=== PATIENT | female | born 1980 | race Caucasian/White ===

== ENCOUNTER 2021-07-09 12:18 | Outpatient (REF) | payer BC, SELFPAY ==
[2021-07-09 11:02] LABS: ALT 30 U/L (14-59); AST 17 U/L (15-37); Albumin 3.7 g/dL (3.4-5.0); Alkaline Phosphatase 90 U/L (46-116); Anion Gap 7.9 mmol/L (3-11); BUN 21 mg/dL (7-18); Bilirubin, Total 0.3 mg/dL (0.2-1.0); CO2 29.1 mmol/L (21.0-32.0); CREATININE 1.3 mg/dL (0.55-1.02); Calcium 9.9 mg/dL (8.5-10.1); Chloride 98 mmol/L (98-107); Estimated GFR 45.84 (mL/min/1.73m2); Glucose 112 mg/dL (74-106); Magnesium 1.6 mg/dL (1.8-2.4); Potassium 3.4 mmol/L (3.5-5.1); Sodium 135 mmol/L (136-145)
[2021-07-09 11:11] LABS: Bilirubin Negative (Negative); Blood Moderate (Negative); Clarity Sl Cloudy (Clear); Glucose 100 mg/dL (Negative); Ketones Negative (Negative); Leukocyte Esterase Small (Negative); Nitrite Negative (Negative); Specific Gravity 1.025 (1.005-1.025); Urobilinogen 0.2 EU/dL (Up TO 0.2); pH 5.5 (5-8)
[2021-07-09 11:18] LABS: Bacteria Few HPF (Negative); C & S Indicated? No/Sq. Contamination; Casts 3-5 Hyaline LPF (Negative); Crystals Negative HPF (Negative); Epithelial Cells Moderate HPF (Negative); Mucus Negative (Negative); WBC 20-50 HPF (0-5)
== END 2021-07-09 12:19 | disposition home or self-care (01) ==
LOC: LBN 12:18
PROVIDERS: Internal Medicine; PCP Physician Assistant Medical; Visit Provider Nurse Practitioner Adult Health
DX: R35.0 Frequency of micturition (principal); C53.9 Malignant neoplasm of cervix uteri, unspecified
CPT/HCPCS: 80053; 81003; 81015; 83735

== ENCOUNTER 2021-07-16 01:08 | Outpatient (RCR) | payer BC, SELFPAY ==
[2021-07-02 11:14] LABS: Abs Immature Grans 0.01 10^3/uL (0.0-0.06); Absolute Basophil Count 0.01 10^3/uL (0.0-0.2); Absolute Eosinophil Count 0.08 10^3/uL (0.0-0.7); Absolute Lymphocyte Count 1.68 10^3/uL (1.2-3.4); Absolute Neutrophil Count 3.54 10^3/uL (1.2-6.7); Basophils % 0.2; Eosinophils % 1.4; HCT 32.2 % (36.0-46.0); HGB 9.4 g/dL (11.2-15.7); Immature Grans % 0.2; Lymphocytes % 29.9; MCH 19.5 pg (27.0-33.0); MCHC 29.2 % (32.0-36.0); MCV 66.8 fL (80-95); MPV 9.8 fL (8.0-11.0); Monocytes % 5.3; Nucleated RBC 0 %; Platelet Count 409 10^3/uL (130-400); RBC 4.82 10^6/uL (3.93-5.22); RDW 17.3 % (11.7-14.6); RDW-SD 40.9 fL; WBC 5.62 10^3/uL (4.4-10.8)
[2021-07-02 11:27] LABS: ALT 21 U/L (14-59); AST 11 U/L (15-37); Albumin 3.6 g/dL (3.4-5.0); Alkaline Phosphatase 97 U/L (46-116); BUN 10 mg/dL (7-18); Bilirubin, Total 0.2 mg/dL (0.2-1.0); CREATININE 0.7 mg/dL (0.55-1.02); Chloride 104 mmol/L (98-107); Glucose 92 mg/dL (74-106); Sodium 138 mmol/L (136-145)
[2021-07-02 11:29] LABS: Diff Comment Diff Reviewed; Hypochromasia 2+; Microcytosis 2+
[2021-07-03 13:25] LABS: Ferritin 9 ng/mL (8-252)
[2021-07-09 08:38] LABS: Abs Immature Grans 0.03 10^3/uL (0.0-0.06); Absolute Basophil Count 0.01 10^3/uL (0.0-0.2); Absolute Eosinophil Count 0.07 10^3/uL (0.0-0.7); Absolute Lymphocyte Count 0.46 10^3/uL (1.2-3.4); Absolute Monocyte Count 0.43 10^3/uL (0.1-0.8); Basophils % 0.2; Eosinophils % 1.3; HCT 31.3 % (36.0-46.0); HGB 9.3 g/dL (11.2-15.7); Immature Grans % 0.6; Lymphocytes % 8.8; MCH 19.5 pg (27.0-33.0); MCHC 29.7 % (32.0-36.0); MCV 65.5 fL (80-95); MPV 10.1 fL (8.0-11.0); Monocytes % 8.3; Neutrophils % 80.8; Nucleated RBC 0 %; Platelet Count 404 10^3/uL (130-400); RBC 4.78 10^6/uL (3.93-5.22); RDW 16.9 % (11.7-14.6); RDW-SD 38.3 fL
[2021-07-09] MEDS: Normal Saline Flush 10 ML SYR IVP (08:40)
[2021-07-09 08:53] LABS: Diff Comment Diff Reviewed; Hypochromasia 2+; Microcytosis 3+
== END 2021-07-21 23:59 | disposition home or self-care (01) ==
LOC: INF 01:08
PROVIDERS: PCP Physician Assistant Medical; Visit Provider Internal Medicine
DX: C53.9 Malignant neoplasm of cervix uteri, unspecified (principal)
CPT/HCPCS: 36415; 80053; 82728; 83735; 85025

== ENCOUNTER 2021-07-29 18:18 | Outpatient (REF) | payer BC, SELFPAY ==
[2021-07-29 21:36] LABS: Bilirubin Negative (Negative); Blood Large (Negative); Clarity Cloudy (Clear); Glucose 100 mg/dL (Negative); Ketones Negative (Negative); Leukocyte Esterase Trace (Negative); Nitrite Negative (Negative); Specific Gravity >= 1.030 (1.005-1.025); Urobilinogen 0.2 EU/dL (Up TO 0.2)
[2021-07-29 21:45] LABS: Bacteria Many HPF (Negative); C & S Indicated? Yes; Casts Negative LPF (Negative); Crystals Moderate Amorphous HPF (Negative); Epithelial Cells Few HPF (Negative); Mucus Negative (Negative)
== END 2021-07-29 18:19 | disposition home or self-care (01) ==
LOC: LBN 18:18
PROVIDERS: PCP Physician Assistant Medical; Visit Provider Nurse Practitioner Adult Health
DX: R35.0 Frequency of micturition (principal)
CPT/HCPCS: 81003; 81015; 87086

== ENCOUNTER 2021-08-20 02:04 | Outpatient (RCR) | payer BC, SELFPAY ==
[2021-07-23 10:25] LABS: Abs Immature Grans 0.02 10^3/uL (0.0-0.06); Absolute Basophil Count 0.01 10^3/uL (0.0-0.2); Absolute Eosinophil Count 0.03 10^3/uL (0.0-0.7); Absolute Lymphocyte Count 0.25 10^3/uL (1.2-3.4); Absolute Monocyte Count 0.32 10^3/uL (0.1-0.8); Absolute Neutrophil Count 3.09 10^3/uL (1.2-6.7); Basophils % 0.3; Eosinophils % 0.8; HCT 29.7 % (36.0-46.0); Immature Grans % 0.5; Lymphocytes % 6.7; MCH 21.1 pg (27.0-33.0); MCHC 30.3 % (32.0-36.0); MCV 69.7 fL (80-95); MPV 9.7 fL (8.0-11.0); Monocytes % 8.6; Neutrophils % 83.1; Nucleated RBC 0 %; Platelet Count 201 10^3/uL (130-400); RBC 4.26 10^6/uL (3.93-5.22); RDW 24.1 % (11.7-14.6); RDW-SD 39.9 fL; WBC 3.72 10^3/uL (4.4-10.8)
[2021-07-23 10:37] LABS: ALT 26 U/L (14-59); AST 17 U/L (15-37); Albumin 3.5 g/dL (3.4-5.0); Alkaline Phosphatase 84 U/L (46-116); Anion Gap 9.9 mmol/L (3-11); BUN 17 mg/dL (7-18); Bilirubin, Total 0.2 mg/dL (0.2-1.0); CO2 27.1 mmol/L (21.0-32.0); Calcium 8.8 mg/dL (8.5-10.1); Chloride 102 mmol/L (98-107); Glucose 98 mg/dL (74-106); Magnesium 1.4 mg/dL (1.8-2.4); Sodium 139 mmol/L (136-145); Total Protein 7.8 g/dL (6.4-8.2)
[2021-07-23 10:59] LABS: Anisocytosis 2+; Diff Comment RBC Morph Reviewed; Hypochromasia 1+; Microcytosis 1+
[2021-07-30 09:00] LABS: ALT 30 U/L (14-59); AST 18 U/L (15-37); Absolute Basophil Count 0.01 10^3/uL (0.0-0.2); Absolute Eosinophil Count 0.05 10^3/uL (0.0-0.7); Absolute Lymphocyte Count 0.26 10^3/uL (1.2-3.4); Absolute Monocyte Count 0.37 10^3/uL (0.1-0.8); Absolute Neutrophil Count 2.74 10^3/uL (1.2-6.7); Albumin 3.3 g/dL (3.4-5.0); Alkaline Phosphatase 80 U/L (46-116); Anion Gap 8.3 mmol/L (3-11); BUN 11 mg/dL (7-18); Basophils % 0.3; Bilirubin, Total 0.2 mg/dL (0.2-1.0); CO2 29.7 mmol/L (21.0-32.0); CREATININE 0.9 mg/dL (0.55-1.02); Calcium 8.9 mg/dL (8.5-10.1); Chloride 103 mmol/L (98-107); Eosinophils % 1.4; Glucose 108 mg/dL (74-106); HCT 29.4 % (36.0-46.0); Immature Grans % 0.6; Lymphocytes % 7.5; MCHC 30.6 % (32.0-36.0); MCV 71.9 fL (80-95); MPV 9.4 fL (8.0-11.0); Magnesium 1.3 mg/dL (1.8-2.4); Monocytes % 10.7; Neutrophils % 79.5; Platelet Count 158 10^3/uL (130-400); RBC 4.09 10^6/uL (3.93-5.22); RDW 26.4 % (11.7-14.6); RDW-SD 42.5 fL; Sodium 141 mmol/L (136-145); Total Protein 7.5 g/dL (6.4-8.2); WBC 3.45 10^3/uL (4.4-10.8)
[2021-07-30 09:01] LABS: Abs Immature Grans 0.02 10^3/uL (0.0-0.06); Anisocytosis 2+; Diff Comment RBC Morph Reviewed; Microcytosis 1+
[2021-08-06 12:08] LABS: Abs Immature Grans 0.01 10^3/uL (0.0-0.06); Absolute Basophil Count 0.01 10^3/uL (0.0-0.2); Absolute Eosinophil Count 0.03 10^3/uL (0.0-0.7); Absolute Lymphocyte Count 0.17 10^3/uL (1.2-3.4); Absolute Monocyte Count 0.28 10^3/uL (0.1-0.8); Absolute Neutrophil Count 2.12 10^3/uL (1.2-6.7); Basophils % 0.4; Eosinophils % 1.1; HCT 28.4 % (36.0-46.0); HGB 8.7 g/dL (11.2-15.7); Immature Grans % 0.4; Lymphocytes % 6.5; MCH 22.4 pg (27.0-33.0); MCHC 30.6 % (32.0-36.0); MPV 9.6 fL (8.0-11.0); Monocytes % 10.7; Neutrophils % 80.9; Nucleated RBC 0 %; Platelet Count 163 10^3/uL (130-400); RBC 3.89 10^6/uL (3.93-5.22); RDW 28.1 % (11.7-14.6); RDW-SD 67.8 fL; WBC 2.62 10^3/uL (4.4-10.8)
[2021-08-06 12:09] LABS: Anisocytosis 3+; Diff Comment Diff Reviewed; Hypochromasia 1+; Microcytosis 1+; Poikilocytes 1+
[2021-08-06 12:11] LABS: Calcium 9.2 mg/dL (8.5-10.1)
[2021-08-06 12:12] LABS: ALT 51 U/L (14-59); AST 28 U/L (15-37); Albumin 3.4 g/dL (3.4-5.0); Alkaline Phosphatase 80 U/L (46-116); Anion Gap 8.5 mmol/L (3-11); BUN 16 mg/dL (7-18); Bilirubin, Total 0.2 mg/dL (0.2-1.0); CO2 29.5 mmol/L (21.0-32.0); CREATININE 1.1 mg/dL (0.55-1.02); Chloride 102 mmol/L (98-107); Estimated GFR 55.59 (mL/min/1.73m2); Glucose 100 mg/dL (74-106); Magnesium 1.1 mg/dL (1.8-2.4); Potassium 3.7 mmol/L (3.5-5.1); Sodium 140 mmol/L (136-145); Total Protein 7.6 g/dL (6.4-8.2)
== END 2021-08-20 23:59 | disposition home or self-care (01) ==
LOC: INF 02:04
PROVIDERS: PCP Physician Assistant Medical; Visit Provider Internal Medicine
DX: C53.9 Malignant neoplasm of cervix uteri, unspecified (principal)
CPT/HCPCS: 36415; 80053; 83735; 85025